=== PATIENT | male | born 1960 | race Caucasian/White ===

== ENCOUNTER → 2021-06-23 | Outpatient (CLI) | payer BC ==
--- NOTE | 2021-06-23 09:11 | US ---
EXAMINATION TYPE: US prostate transrectal DATE OF EXAM: 06/23/2021 COMPARISON: NONE CLINICAL HISTORY: R97.20 Elevated PSA. This examination was performed using the transrectal probe. EXAM MEASUREMENTS: Gland Size: 4.7 x 3.9 x 5.2 cm Volume: 50.24 ml Predicted PSA: 6.03 Actual PSA (if available):4.3 Enlarged gland. Fairly homogeneous peripheral gland. Heterogeneous central zone. Initial images show seminal vesicles appear within normal limits. Heterogeneous enlarged prostate wit hout discrete focal nodule. Central calcifications are present. IMPRESSION: Findings consistent with BPH. No suspicious nodule. Predicted PSA = volume x 0.12 ng/ml Calculated Volume = 0.5236 x L x W x H
== END | disposition home or self-care (01) ==
LOC: RADUSWWP 08:32
PROVIDERS: ATTEND Nurse Practitioner
DX: R97.20 Elevated prostate specific antigen [PSA] (principal); N40.0 Benign prostatic hyperplasia without lower urinary tract symptoms
CPT/HCPCS: 76872

== ENCOUNTER → 2022-11-29 | Outpatient (CLI) | payer OTHER ==
--- NOTE | 2022-11-29 08:18 | US ---
EXAMINATION TYPE: US abdomen complete DATE OF EXAM: 11/29/2022 COMPARISON: NONE CLINICAL HISTORY: R11.14 BILIOUS VOMITING AND NAUSEA. Pt states on/off episodes of nausea, vomiting, and diarrhea TECHNIQUE: Multiple sonographic images of the abdomen are obtained. FINDINGS: EXAM MEASUREMENTS: Liver Length: 17. cm Gallbladder Wall: 0.2 cm CBD: 0.4 cm Spleen: 11.2 cm Right Kidney: 11.3 x 6.0 x 5.9 cm Left Kidney: 12.2 x 6.0 x 5.5 cm CANTILEVER CRANE OPERATOR NOTES: Pancreas: Obscured by bowel gas Liver: Heterogeneous, echogenic when compared to right kidney Gallbladder: wnl Evidence for sonographic Buenrostro's sign: No CBD: wnl Spleen: wnl Right Kidney: wnl Left Kidney: wnl Upper IVC: wnl Abd Aorta: Obscured by overlying bowel gas The visualized liver is heterogeneously hyperechoic. Evaluation for focal masses suboptimal due to th e heterogeneity. The intrahepatic portion of the IVC is seen. Aorta obscured by overlying bowel gas. There is no evidence of shadowing mobile cholelithiasis. Common bile duct is unremarkable. Pancreas suboptimally seen secondary to overlying bowel gas per technologist. The spleen is unremarkable. K idneys are symmetric and free of hydronephrosis. No renal lesions are seen. IMPRESSION: No acute findings are evident. Suboptimal evaluation of pancreas noted. Heterogeneous hyp erechoic appearance of liver could reflect product of diffuse fatty infiltration and/or underlying he patocellular disease.
== END | disposition home or self-care (01) ==
LOC: RADUSWWP 07:03
PROVIDERS: ATTEND Family Medicine
DX: R11.14 Bilious vomiting (principal)
CPT/HCPCS: 76700

== ENCOUNTER → 2023-02-23 | Outpatient (CLI) | payer OTHER ==
[2023-02-23 14:59] LABS: Basophils # (A) 0.07 X 10*3/uL (0.00-0.10); Basophils % (A) 1.2 %; Eosinophils % (A) 3.4 %; HCT 42.7 % (39.6-50.0); HGB 13.3 d/dL (12.0-15.0); Lymphocytes # (A) 2.27 X 10*3/uL (0.90-5.00); Lymphocytes % (A) 38.9 %; MCH 28.7 pg (27.0-32.0); MCHC 31.1 d/dL (32.0-37.0); MCV 92.2 FL (80.0-97.0); Mean Platelet Volume 11.2 FL (9.5-12.2); Monocytes % (A) 8.6 %; NRBC Per 100 WBC 0 X 10*3/uL (0.00-0.01); Neutrophils # (A) 2.78 X 10*3/uL (1.80-7.70); Neutrophils % (A) 47.6 %; Platelet Count 248 X 10*3/uL (140-440); RBC 4.63 X 10*6/uL (4.40-5.60); RDW 12.3 % (11.5-14.5); WBC 5.84 X 10*3/uL (4.50-10.00)
[2023-02-23 15:45] LABS: ALT 21 U/L (10-49); AST 18 U/L (14-35); Albumin 4.8 d/dL (3.8-4.9); Albumin/Globulin Ratio 2.09 Ratio (1.60-3.17); Alkaline Phosphatase 30 U/L (41-126); Amylase 117 U/L (23-121); BUN/Creat Ratio 18.33 Ratio (12.00-20.00); Calcium 10.1 mg/dL (8.7-10.3); Carbon Dioxide 25.1 mmol/L (21.6-31.8); Chloride 102 mmol/L (96-109); Globulin 2.3 d/dL (1.6-3.3); Glucose 138 mg/dL (70-110); Lipase 58 U/L (14-60); Sodium 140 mmol/L (135-145); Total Bilirubin 0.2 mg/dL (0.3-1.2); Total Protein 7.1 d/dL (6.2-8.2); Uric Acid 3.8 mg/dL (3.7-8.7)
== END | disposition home or self-care (01) ==
LOC: LABWHC1 07:55
PROVIDERS: ATTEND Family Medicine
DX: R10.13 Epigastric pain (principal)
CPT/HCPCS: 36415; 80053; 82150; 83690; 84550; 85025

== ENCOUNTER → 2023-02-23 | Outpatient (CLI) | payer OTHER ==
--- NOTE | 2023-02-23 16:08 | US ---
EXAMINATION TYPE: US abdomen complete DATE OF EXAM: 02/23/2023 COMPARISON: US CLINICAL INDICATION: Male, 62 years old with history of R10.13 EPIGASTRIC PAIN; N&V TECHNIQUE: Multiple sonographic images of the abdomen are obtained. FINDINGS: EXAM MEASUREMENTS: Liver Length: 17.5 cm Gallbladder Wall: 0.2 cm CBD: 0.3 cm Spleen: 11.8 cm Right Kidney: 10.8 x 5.6 x 5.5 cm Left Kidney: 11.1 x 5.3 x 5.0 cm MEDICAL CENTER REPRESENTATIVE NOTES: Pancreas: Body wnl, head and tail obscured by overlying bowel gas Liver: Heterogeneous, echogenic in appearance Gallbladder: wnl Evidence for sonographic Buenrostro's sign: No CBD: wnl Spleen: wnl Right Kidney: wnl Left Kidney: wnl Upper IVC: wnl Abd Aorta: Mid portion obscured by overlying bowel gas, otherwise appeared wnl IMPRESSION: 1. No acute ultrasound abnormality. 2. Hepatomegaly with mild fatty infiltration. 3. Some limitation due to bowel gas
== END | disposition home or self-care (01) ==
LOC: RADUSWWP 07:34
PROVIDERS: ATTEND Family Medicine
DX: K76.0 Fatty (change of) liver, not elsewhere classified (principal); R16.0 Hepatomegaly, not elsewhere classified; R10.13 Epigastric pain
CPT/HCPCS: 76700

== ENCOUNTER 2024-08-04 16:50 | Observation (INO) | payer OTHER ==
--- NOTE | 2024-08-04 17:18 | ED ---
General Adult HPI - General Chief complaint: Chest Pain Stated complaint: Chest Pain Time Seen by Provider: 08/04/24 17:00 Source: patient, EMS, RN notes reviewed, old records reviewed Mode of arrival: EMS Limitations: no limitations - History of Present Illness Initial comments: This is a 64-year-old male who presents to the emergency department stating that he was having chest pain on and off for the last 3 days and because it was not going away completely patient thought that he should get checked out because he is a diabetic with high blood pressure high cholesterol. Patient does not know his family history because he is adopted. Patient states that he did get nitroglycerin and it did seem to take with the pain. Patient states that he cur rently is pain and symptom-free. - Related Data Allergies Allergy/AdvReac Type Severity Reaction Status Date / Time No Known Allergies Allergy Verified 08/04/24 16:58 Review of Systems ROS Statement: Those systems with pertinent positive or pertinent negative responses have been documented in the HPI. ROS Other: All systems not noted in ROS Statement are negative. Past Medical History Past Medical History: Chest Pain / Angina, Diabetes Mellitus, GERD/Reflux, Hyperlipidemia, Hypertension Additional Past Medical History / Comment(s): Type 2 Diabetes, Prostate issues History of Any Multi-Drug Resistant Organisms: None Reported Past Surgical History: No Surgical Hx Reported Past Psychological History: No Psychological Hx Reported Smoking Status: Former smoker Past Alcohol Use History: Rare Past Drug Use History: None Reported General Exam - General Exam Comments Initial Comments: GENERAL: Patient is well-developed and well-nourished. Patient is nontoxic and well- hydrated and is in no acute distress. ENT: Neck is soft and supple. No significant lymphadenopathy is noted. Oropharynx is clear. Moist mucous membranes. Neck has full range of motion without eliciting any pain. EYES: The sclera were anicteric and conjunctiva were pink and moist. Extraocular movements were intact and pupils were equal round and reactive to light. Eyelids were unremarkable. PULMONARY: Unlabored respirations. Good breath sounds bilaterally. No audible rales rhonchi or wheezing was noted. CARDIOVASCULAR: There is a regular rate and rhythm without any murmurs gallops or rubs. ABDOMEN: Soft and nontender with normal bowel sounds. SKIN: Skin is clear with no lesions or rashes and otherwise unremarkable. NEUROLOGIC: Patient is alert and oriented x3. Cranial nerves II through XII are grossly intact. Motor and sensory are also intact. Normal speech, volume and content. Symmetrical smile. MUSCULOSKELETAL: Normal extremities with adequate strength and full range of motion. LYMPHATICS: No significant lymphadenopathy is noted PSYCHIATRIC: Normal psychiatric evaluation. Limitations: no limitations Course Vital Signs 08/04/24 08/04/24 08/04/24 16:51 17:35 17:37 Temperature 98.1 F Pulse Rate 86 87 Pulse Rate [ 84 Exhaust And Muffler Repairer ] Respiratory 18 16 Rate Blood Pressure 132/74 135/70 O2 Sat by Pulse 97 98 Oximetry 08/04/24 18:30 Temperature 97.9 F Pulse Rate 83 Pulse Rate [ Exhaust And Muffler Repairer ] Respiratory 18 Rate Blood Pressure 129/80 O2 Sat by Pulse 97 Oximetry Medical Decision Making - Medical Decision Making EKG is interpreted by myself. EKG shows sinus rhythm at 82 bpm AR interval is 141 QRS is 97 QT interval is 368 QTc is 406. She shows no ST segment elevation Was pt. sent in by a medical professional or institution (, PA, [facility], urgent care, hospital, or shelter...) When possible be specific @ -Patient was sent to us by [facility] Did you speak to anyone other than the patient for history (EMS, parent, family, police, friend...)? What history was obtained from this source @ -I spoke with the ER physician prior to the patient's arrival Did you review nursing and triage notes (agree or disagree)? Why? @ -I reviewed and agree with nursing and triage notes Were old charts reviewed (outside hosp., previous admission, EMS record, old EKG, old radiological studies, urgent care reports/EKG's, shelter records)? Report findings @ -No old charts were reviewed Differential Diagnosis? @ -Differential Chest Pain: Stable Angina, Unstable Angina, STEMI, NSTEMI Aortic Dissection, Pneumothorax, Musculoskeletal, Esophageal Spasm GERD, Cholecystitis, Pancreatitis, Zoster, this is not meant to be an all-inclusive list. EKG interpreted by me (3pts min.). @ -As above X-rays interpreted by me (1pt min.). @ -None done CT interpreted by me (1pt min.). @ -None done U/S interpreted by me (1pt. min.). @ -None done What testing was considered but not performed or refused? (CT, X-rays, U/S, labs)? Why? @ -None What meds were considered but not given or refused? Why? @ -None Did you discuss the management of the patient with other professionals (professionals i.e. , PA, [employer], lab, RT, psych nurse, aids social worker, piano refinisher, teacher, corporate banking officer, case management assistant)? Give summary @ -I spoke with sound physicians he agreed to admit the patient admitted patient wrote admitting orders Was smoking cessation discussed for >3mins.? @ -No Was critical care preformed (if so, how long)? @ -No Were there social determinants of health that impacted care today? How? (Homelessness, low income, unemployed, alcoholism, drug addiction, transportation, low edu. Level, literacy, decrease access to med. care, retirement, rehab)? @ -No Was there de-escalation of care discussed even if they declined (Discuss DNR or withdrawal of care, Hospice)? DNR status @ -No What co-morbidities impacted this encounter? (DM, HTN, Smoking, COPD, CAD, Cancer, CVA, ARF, Chemo, Hep., AIDS, mental health diagnosis, sleep apnea, morbid obesity)? @ -None Was patient admitted / discharged? Hospital course, mention meds given and route, prescriptions, significant lab abnormalities, going to OR and other pertinent info. @ -Patient came end chest pain-free he remained that way throughout his ED course. EKG was done and troponin showed no acute abnormality Undiagnosed new problem with uncertain prognosis? @ -No Drug Therapy requiring intensive monitoring for toxicity (Heparin, Nitro, Insulin, Cardizem)? @ -No Were any procedures done? @ -No Diagnosis/symptom? @ -Chest pain Acute, or Chronic, or Acute on Chronic? @ -Acute Uncomplicated (without systemic symptoms) or Complicated (systemic symptoms)? @ -Complicated Side effects of treatment? @ -No Exacerbation, Progression, or Severe Exacerbation? @ -No Poses a threat to life or bodily function? How? (Chest pain, [place], [place], pneumonia, PE, COPD, DKA, ARF, appy, cholecystitis, CVA, Diverticulitis, Homicidal, Suicidal, threat to staff... and all critical care pts) @ -Yes this could be lead to an [place] and endorgan dysfunction - Lab Data Lab Results 11/23/24 Range/Units 17:26 Troponin I <0.012 (0.000-0.034) ng/mL Disposition Clinical Impression: Chest pain Disposition: ADMITTED IP TO THIS HOSP Referrals: Ta Murray DO [Primary Care Provider] - 1-2 days Time of Disposition: 19:44
[2024-08-04 18:32] VITALS: TEMP 97.9
[2024-08-04] MEDS ORDERED: NITROGLYCERIN SL TABS 0.4 MG TAB SUBLINGUAL PRN (19:44)
--- NOTE | 2024-08-04 23:28 | P.HPIM ---
History of Present Illness H&P Date: 08/04/24 History of present illness; 64-year-old man with PMH of recently diagnosed type II diabetes mellitus and GERD. Presents to the emergency department stating that he was persistent intermittent chest pain for the last 3 days. He became alarmed and thought he should get it checked out because of his history of diabetes. When seen at bedside the patient reports he is without any pain. He states that he has had a 3-day history of chest pain that was localized to the left pec region. The pain did not radiate, he describes it as being a sharp pain, at its worst he states it was a 4/10, earlier today he states it was a 2/10. He does state that the pain is partially pleuritic, however the pain itself did not prohibit him from doing his usual activities outside. He states that today he was working outside, and felt as though some of the work he was doing exacerbated his pain a bit. He describes it as feeling as though it was a pulled muscle, he notes that during the 3 days in which he had the pain it was reproducible when palpating the pectoral muscle. At this time he is not in any pain, denies palpitations, chest pain, shortness of breath or any acute complaints. Labratory review: Inital lab work at [facility]: WBC 6.72, hemoglobin 12.4, hematocrit 36.8, platelet 220; sodium 137, potassium 4.2, BUN 30.5, creatinine 1.28; magnesium 1.7, phosphorus 3.6, proBNP <20, troponin <0.012 Imaging: -EKG done in the ER showed sinus rhythm heart rate of 82, no ST segment elevation or depression seen, no T-wave abnormalities seen. Vitals: -Blood pressure 129/80, heart rate 83, respiratory rate 18, SpO2 97% on room air Patient admitted to internal medicine service REVIEW OF SYSTEMS: CONSTITUTIONAL: No fever, no malaise, no fatigue. HEENT: No recent visual problems or hearing problems. Denied any sore throat. CARDIOVASCULAR: No chest pain, orthopnea, PND, no palpitations, no syncope. PULMONARY: No shortness of breath, no cough, no hemoptysis. GASTROINTESTINAL: No diarrhea, no nausea, no vomiting, no abdominal pain. NEUROLOGICAL: No headaches, no weakness, no numbness. HEMATOLOGICAL: Denies any bleeding or petechiae. GENITOURINARY: Denies any burning micturition, frequency, or urgency. MUSCULOSKELETAL/RHEUMATOLOGICAL: Denies any joint pain, swelling, or any muscle pain. ENDOCRINE: Denies any polyuria or polydipsia. The rest of the 14-point review of systems is negative. PHYSICAL EXAMINATION: GENERAL: The patient is alert and oriented x3, not in any acute distress. Well developed, well nourished. HEENT: Pupils are round and equally reacting to light. EOMI. No scleral icterus. No conjunctival pallor. Normocephalic, atraumatic. No pharyngeal erythema. No thyromegaly. CARDIOVASCULAR: S1 and S2 present. No murmurs, rubs, or gallops. PULMONARY: Chest is clear to auscultation, no wheezing or crackles. ABDOMEN: Soft, nontender, nondistended, normoactive bowel sounds. No palpable organomegaly. MUSCULOSKELETAL: No joint swelling or deformity. EXTREMITIES: No cyanosis, clubbing, or pedal edema. Manfred(blood glucose) monitor on left upper arm NEUROLOGICAL: Gross neurological examination did not reveal any focal deficits. SKIN: No rashes. Assessment and plan 65-year-old man with PMH diabetes mellitus, GERD, hyperlipidemia, hypertension and chest pain/angina. Presents for chest pain on and off for the last 3 days and has not fully resolved so he came to have it further evaluated. Discussed with the ED, patient admitted to the internal medicine service for further evaluation. #Atypical chest pain r/o ACS -Trend troponins: Initial 2 troponins <0.012 -EKG done in the ER showed sinus rhythm heart rate of 82, no ST segment elevation or depression seen, no T-wave inversions seen. -Continue with nitroglycerin as needed for pain -Continue with aspirin 81 mg daily -Initiate lipitor -Cardiac monitoring -Supplemental oxygen as needed -Heart healthy diet -Cardiology consulted -Echocardiogram ordered #VANESSA -Initial lab work at [facility] showed BUN 30.5, creatinine 1.28 -Initiate NS 100 cc/h #Type 2 diabetes mellitus -Maintained at home on 10 mg Farxiga daily, Tradjenta, metformin 1000 mg twice daily; hold metformin -Additionally his primary care doctor put him on a 2.5 mg daily lisinopril and rosuvastatin (patient unsure dose) -Patient has a manfred system to monitor glucose levels -Initiate sliding scale -Blood glucose monitoring #Benign prostatic hyperplasia -Patient maintained at home on finasteride #GERD -Patient maintained at home on Protonix GI prohylaxis: Continue home Protonix 40 mg daily DVT prophylaxis: Joes Risk Score: 1 point (low risk for VTE, prophylaxis not indicated) Dictation was produced using [employer] dictation software. please excuse any grammatical, word or spelling errors. Past Medical History Past Medical History: Chest Pain / Angina, Diabetes Mellitus, GERD/Reflux, Hyperlipidemia, Hypertension Additional Past Medical History / Comment(s): Type 2 Diabetes, Prostate issues History of Any Multi-Drug Resistant Organisms: None Reported Past Surgical History: No Surgical Hx Reported Past Psychological History: No Psychological Hx Reported Smoking Status: Former smoker Past Alcohol Use History: Rare Past Drug Use History: None Reported Medications and Allergies Allergies Allergy/AdvReac Type Severity Reaction Status Date / Time No Known Allergies Allergy Verified 08/04/24 16:58 Physical Exam Vitals: Vital Signs Temp Pulse Pulse Resp BP Pulse Ox 08/04/24 18:30 97.9 F 83 18 129/80 97 08/04/24 17:37 84 08/04/24 17:35 87 16 135/70 98 08/04/24 16:51 98.1 F 86 18 132/74 97 Intake and Output 08/04/24 08/04/24 08/04/24 06:59 14:59 22:59 Other: Weight 79.379 kg
[2024-08-05] MEDS: SODIUM CHLORIDE 0.9% 1,000 ML IV SCH (05:22)
[2024-08-05 07:14] VITALS: RESP 18
[2024-08-05 07:47] LABS: African American GFR (CKD) 80 (>60 ml/min/1.73 sqM); Anion Gap 7 mmol/L; Blood Urea Nitrogen 20 mg/dL (9-20); Calcium 9.6 mg/dL (8.4-10.2); Carbon Dioxide 27 mmol/L (22-30); Chloride 104 mmol/L (98-107); Glucose 112 mg/dL (74-99); Non-African American GFR(CKD) 69 (>60 ml/min/1.73 sqM); Potassium 4.4 mmol/L (3.5-5.1); Sodium 138 mmol/L (137-145)
[2024-08-05] MEDS: ASPIRIN 81 MG PO SCH (08:05)
[2024-08-05] MEDS ORDERED: ASPIRIN 325 MG TAB PO SCH (09:00)
[2024-08-05 10:34] LABS: LDL Cholesterol,Calculated 104.4 mg/dL (0.0-131.0)
[2024-08-05 11:05] VITALS: BP 109/60; PULSE 84
--- NOTE | 2024-08-05 14:14 | P.DS ---
Providers Date of admission: 08/04/24 19:59 Expected date of discharge: 08/05/24 Attending physician: Michael Harris Consults: 08/04/24 19:44 Consult Physician Urgent Consulting Provider: [facility] Consult Reason/Comments: Chest pain Do you want consulting provider notified?: Yes Primary care physician: Ta Murray DO Hospital Course: Patient left AMA. Dr. Thornton was notified after patient left. I did not see this patient or assess this patient during his admission. Patient Condition at Discharge: Undetermined Plan - Discharge Summary Follow up Appointment(s)/Referral(s): Ta Murray DO [Primary Care Provider] - 1-2 days Discharge Disposition: LEFT AGAINST MEDICAL ADVICE
== END 2024-08-05 11:21 | disposition left against medical advice (07) ==
LOC: EC 16:50 → 3SCARD 19:59
PROVIDERS: ADMIT Student in an Organized Health Care Education/Training Program; ATTEND Student in an Organized Health Care Education/Training Program
DX: R07.89 Other chest pain (principal); N17.9 Acute kidney failure, unspecified; E11.9 Type 2 diabetes mellitus without complications; I10 Essential (primary) hypertension; E78.5 Hyperlipidemia, unspecified; K21.9 Gastro-esophageal reflux disease without esophagitis; N40.0 Benign prostatic hyperplasia without lower urinary tract symptoms; Z79.82 Long term (current) use of aspirin; Z79.84 Long term (current) use of oral hypoglycemic drugs; Z87.891 Personal history of nicotine dependence; Z53.29 Procedure and treatment not carried out because of patient's decision for other reasons
CPT/HCPCS: 96360; 96361; 99285; 36415; 93005 ×2; 80061; 80048; 83735; 84484; G0378 ×2